=== PATIENT | female | born 1950 | race Caucasian/White ===

== ENCOUNTER 2019-05-05 13:50 | Emergency (ER) | payer MEDICARE ==
--- NOTE | 2019-05-05 14:10 | ED ---
Upper Extremity Pain - HPI Summary HPI Summary: Patient is a 68 y/o F presenting to [facility] with complaints of right shoulder pain. Patient reports that she has been experiencing pain at this shoulder for the past month. Less than an hour ago, she states that she lifted a bag of garbage up and into a dumpster. She felt some tearing and sudden onset of pain. Decreased ROM of the RUE is noted. She rates the pain a "20" out of 10. Patient had cyst removal to right shoulder. PSHx of left (not right) shoulder rotator cuff surgery is noted as well. She also notes "sinus infection" for the past two days. PMHx of asthma is noted. Home medications and allergies are reviewed. - History of Current Complaint Chief Complaint: EDShoulderClavicByron Stated Complaint: RT ARM INJ PER PT Time Seen by Provider: 05/05/19 14:01 Hx Obtained From: Patient Mechanism Of Injury: Other - lifting bag of garbage Onset/Duration: Started Minutes Ago, Started Weeks Ago, Still Present, Worse Since Timing: Constant, Lasting Minutes, Lasting Weeks Severity Initially: Moderate Severity Currently: Severe Pain Location: Shoulder - right Aggravating Factor(s): Movement Alleviating Factor(s): Nothing Associated Signs & Symptoms: Positive: Negative - Allergies/Home Medications Allergies/Adverse Reactions: Allergies Allergy/AdvReac Type Severity Reaction Status Date / Time No Known Allergies Allergy Verified 05/05/19 13:55 PMH/Surg Hx/FS Hx/Imm Hx Endocrine/Hematology History: Denies: Hx Diabetes, Hx Anemia Cardiovascular History: Reports: Hx Hypertension - TAKES MEDICATION Denies: Hx Pacemaker/ICD Respiratory History: Reports: Hx Asthma GI History: Denies: Hx Jaundice History: Denies: Hx Dialysis, Hx Renal Disease Sensory History: Denies: Hx Hearing Aid Psychiatric History: Denies: Hx Panic Disorder - Cancer History Hx Chemotherapy: No Hx Radiation Therapy: No - Surgical History Surgery Procedure, Year, and Place: BILATERAL KNEE REPLACEMENT. RT SHOULDER ARTHRO Infectious Disease History: No Infectious Disease History: Denies: Traveled Outside the [place] in Last 30 Days - Family History Known Family History: Positive: Cardiac Disease, Diabetes - Social History Alcohol Use: None Substance Use Type: Reports: None Smoking Status (MU): Never Smoked Tobacco Review of Systems Negative: Fever - on vitals, temp is 99.5 F ENT: Other - positive - "sinus infection" Musculoskeletal: Other - positive - right shoulder pain Positive: Decreased ROM - RUE All Other Systems Reviewed And Are Negative: Yes Physical Exam - Summary Physical Exam Summary: VITAL SIGNS: Reviewed. GENERAL: Patient is a well-developed and nourished female who is lying comfortable in the stretcher. Patient is not in any acute respiratory distress. HEAD AND FACE: No signs of trauma. No ecchymosis, hematomas or skull depressions. No sinus tenderness. EYES: PERRLA, EOMI x 2, No injected conjunctiva, no nystagmus. EARS: Hearing grossly intact. Ear canals and tympanic membranes are within normal limits. MOUTH: Oropharynx within normal limits. NECK: Supple, trachea is midline, no adenopathy, no JVD, no carotid bruit, no c- spine tenderness, neck with full ROM. CHEST: Symmetric, no tenderness at palpation. LUNGS: Clear to auscultation bilaterally. No wheezing or crackles. CVS: Regular rate and rhythm, S1 and S2 present, no murmurs or gallops appreciated. ABDOMEN: Soft, non-tender. No signs of distention. No rebound, no guarding, and no masses palpated. Bowel sounds are normal. EXTREMITIES: Decreased ROM of RUE secondary to pain, unable to abduct RUE. There is no edema, no deformity, no cyanosis or clubbing. Good pulses. NEURO: Alert and oriented x 3. No acute neurological deficits. Speech is normal and follows commands. SKIN: Dry and warm. Triage Information Reviewed: Yes Vital Signs On Initial Exam: Initial Vitals Temp Pulse Resp BP Pulse Ox 99.5 F 93 16 206/91 98 05/05/19 13:53 05/05/19 13:53 05/05/19 13:53 05/05/19 13:53 05/05/19 13:53 Vital Signs Reviewed: Yes Procedures - Sedation Patient Received Moderate/Deep Sedation with Procedure: No Diagnostics - Vital Signs Vital Signs Temp Pulse Resp BP Pulse Ox 05/05/19 13:53 99.5 F 93 16 206/91 98 - Laboratory Lab Statement: Any lab studies that have been ordered have been reviewed, and results considered in the medical decision making process. - Radiology RIGHT SHOULDER X-RAY Radiology Interpretation Completed By: Radiologist Summary of Radiographic Findings: IMPRESSION: Question fracture of the inferior aspect of the clavicle at the. coracoclavicular ligament. The humerus and glenohumeral joint are unremarkable. THIS REPORT WAS REVIEWED BY DR. ELISE. Re-Evaluation - Re-Evaluation First Eval Re-Evaluation Time: 15:24 Comment: Discussed shoulder x-ray with the patient. Patient was placed in the shoulder immobilizer. Patient was discharged home with follow-up with orthopedics. Course/Dx - Course Assessment/Plan: This patient is a 68-year-old female who presents to the emergency department with a chief complaint of right shoulder pain. She reports that she was lifting a heavy bag of garbage and she experiencing a tearing sensation of the right shoulder and since then the patient is having pain. X-ray of the right shoulder questionable fracture of the inferior aspect of the clavicle and the coracoclavicular ligament. The humerus and the numeric joint are unremarkable. In the ED course the patient was given Toradol and [place] for pain. Patient was placed in the shoulder immobilizer. Patient was discharged home with follow-up with orthopedics. Patient is hemodynamically stable and attempted 3. - Diagnoses Differential Diagnosis/HQI/PQRI: Positive: Arthritis, Bursitis, Fracture (Closed ), Strain, Sprain Provider Diagnoses: Clavicular fracture Discharge ED - Sign-Out/Discharge Documenting (check all that apply): Patient Departure - discharge - Discharge Plan Condition: Stable Disposition: HOME Patient Education Materials: Clavicle Fracture (ED) Referrals: Bro King MD [Medical Doctor] - 3 Days Roya Bahena MD [Primary Care Provider] - 3 Days Additional Instructions: PLEASE RETURN TO ED FOR ANY NEW OR WORSENING SYMPTOMS. PLEASE FOLLOW UP WITH ORTHOPEDICS AND YOUR PRIMARY CARE PHYSICIAN WITHIN THREE DAYS. - Billing Disposition and Condition Condition: STABLE Disposition: Home - Attestation Statements Document Initiated by Scribe: Yes Documenting Scribe: YESSI BERRY Provider For Whom Darcy is Documenting (Include Credential): ROSS ELISE MD Scribe Attestation: YESSI Ibarra, scribed for ROSS ELISE MD on 05/06/19 at 1243. Scribe Documentation Reviewed: Yes Provider Attestation: The documentation as recorded by the YESSI muse accurately reflects the service I personally performed and the decisions made by ROSS carter MD Status of Scribe Document: Viewed
[2019-05-05] MEDS ORDERED: Ketorolac INJ* 30 MG/ML 1 ML VIAL IV PUSH ONE (14:11)
[2019-05-05] MEDS ORDERED: oxyCODONE/Acetamin 5/325 MG* TAB PO ONE (14:11)
[2019-05-05] MEDS ORDERED: Ketorolac *IM* INJ* 60 MG/2 ML VIAL IM ONE (14:44)
--- OUTSIDE RECORDS SUMMARY | 2019-05-05 15:08 | XMS REPORT | Continuity of Care Document ---
:1950 External Reference #:[id number] Author Name Jerilyn Aguiar O.D. Address [address] [place] [id number] Care Team Providers Name Role Phone Roya Bahena M.D. - Internal Care Team Information Deputy [employer] Medicine Problems Active Problems Provider Date Essential hypertension Onset: Hypercholesterolemia Onset: Asthma Onset: Nuclear senile cataract Jerilyn Aguiar O.D. Onset: 03/01/2018 Presbyopia Jerilyn Aguiar O.D. Onset: 03/01/2018 Regular astigmatism Jerilyn Aguiar O.D. Onset: 03/01/2018 Social History Type Date Description Comments Sex Unknown ETOH Use Denies alcohol use Tobacco Use Start: Unknown Patient has never smoked Recreational Drug Use Denies Drug Use Smoking Status Reviewed: 04/26/19 Patient has never smoked Allergies, Adverse Reactions, Alerts Description No Known Drug Allergies Medications Active Medications SIG Qnty Indications Ordering Provider Date Lisinopril Dewayne Palomo, 10mg Tablets Hydrocodone-Acetaminoph Roya Bahena en M.D. 10-325mg Tablets Pantoprazole Sodium take 1 tablet by Unknown 40mg mouth once daily Tablets Roya Marie 100mg Capsules M.D. Amlodipine Besylate Unknown 2.5mg Tablets Ezetimibe Unknown 10mg Tablets Atorvastatin Calcium Unknown 10mg Tablets Montelukast Sodium Kailey Smith 10mg N.P. Tablets Asmanex Twisthaler 60 Roya Bahena Metered Doses M.D. 220mcg/Inh Aerosol Proair HFA Roya Bahena 108(90Base) M.D. mcg/Act Aerosol Potassium Chloride Dewayne Gilbert, ER 20Meq Tablets ER Metoprolol Tartrate Unknown 50mg Tablets Aspirin [address] Kings Description No Information Available Vital Signs Description No Information Available Results Description No Information Available Procedures Description No Information Available Medical Devices Description No Information Available Encounters Description No Information Available Assessments Date Code Description Provider 04/26/2019 H25.13 Age-related nuclear cataract, bilateral Jerilyn Aguiar O.D. 04/26/2019 H52.4 Presbyopia Jerilyn Aguiar O.D. 04/26/2019 H52.223 Regular astigmatism, bilateral Jerilyn Aguiar O.D. Plan of Treatment 04/26/2019 - Jerilyn Aguiar O.D.H25.13 Age-related nuclear cataract, bilateralComments:You have been diagnosed with cataracts. If you are happy with your vision as it is now, then we willsee you at your next scheduled appointment. If you feel like your vision is getting worse before your scheduled appointment, please call [facility] at [phone].Follow up:1 Year Follow Up You can expect to have your eyes dilated at your next visit. If Dr. Aguiar orders any additional testing, it may require extra time. We recommend that you bring sunglasses, as dilation drops often make you light sensitive until they wear off. We always recommend you bring someone to drive you home if you are uncomfortable driving with your eyes dilated. If you have any questions before your next visit, feel free to call our office at .H52.4 PresbyopiaComments:You have presbyopia. This is when the lens in your eye loses the ability to change focus, and happens as we age. A pair of reading glasses will help you see up close.H52.223 Regular astigmatism, bilateralComments:You have an astigmatism. Astigmatism is a common vision condition that happens when a person's cornea is not symmetrical. Dr. Aguiar has given you a prescription to correct for this. Functional Status Description No Information Available Mental Status Description No Information Available Referrals Description No Information Available
--- OUTSIDE RECORDS SUMMARY | 2019-05-05 15:08 | XMS REPORT | Continuity of Care Document ---
:1950 External Reference #:[id number] Author Name Dewayne Palomo M.D. (transmitted by agent of provider Alejandra Abrams ) Address [address] [place] [id number] Care Team Providers Name Role Phone Roya Bahena MD - Internal Care Team Information Hospital Clerk Medicine Problems Active Problems Provider Date Benign essential hypertension Jo-Ann Tracey, N.PZahraa Onset: 10/21/2011 Morbid obesity Dewayne Palomo M.D. Onset: 12/20/2012 Electrocardiogram abnormal Dewayne Palomo M.D. Onset: 12/20/2012 Mitral valve disorder Dewayne Palomo M.D. Onset: 12/20/2012 Spinal stenosis of lumbar region Pop Lucero M.D. Onset: 09/30/2013 Essential hypertension Dewayne Palomo M.D. Onset: 04/01/2015 Sleep disorder Dewayne Palomo M.D. Onset: 04/02/2014 Social History Type Date Description Comments Sex Unknown Tobacco Use Start: Unknown Never Smoked Cigarettes Smoking Status Reviewed: 03/15/19 Never Smoked Cigarettes ETOH Use Denies alcohol use Tobacco Use Start: Unknown Patient has never smoked Recreational Drug Use Denies Drug Use Exercise Type/Frequency Exercises rarely Allergies, Adverse Reactions, Alerts Description No Known Drug Allergies Medications Active Medications SIG Qnty Indications Ordering Provider Date Pantoprazole Sodium 1 by mouth every 60tabs R07.9 Dewayne Matute 02/10/2016 day Lela Palomo 40mg Tablets DR De La Cruz 1 by mouth every 90tabs E78.4 Dewayne Matute 12/15/2015 10mg Tablets day Lela Palomo Amlodipine Besylate 2 by mouth every 180tabs Dewayne Matute 11/11/2015 day Lela Palomo 2.5mg Tablets Lipitor 1/2 by mouth 45tabs Dewayne F. 05/11/2015 10mg Tablets every night at Lela Palomo bedtime Potassium Chloride 1/2 tab by mouth 90tabs Dewayne F. 04/21/2014 Alicja ER twice daily Lela Palomo 20Meq Tablets ER Lisinopril 1 by mouth every 90tabs Dewayne Matute 04/02/2014 10mg Tablets day Lela Palomo Asmanex 120 Metered 1 puff qd Other Ordering 12/20/2012 Doses Provider 220mcg/Inh Aerosol Aspirin 1 po qd 90tabs Dewayne Matute 12/20/2012 81mg Tablets Lela Palomo Lyrica 1 PO twice daily 90caps Aleksandr Patel, 10/09/2006 100mg Capsules Lela Proair HFA 2 puffs po q4h 1units Unknown 108(90Base) prn mcg/ac Aerosol Singulair 1 by mouth every 90tabs Unknown 10mg Tablets day Metoprolol Tartrate 1 by mouth as Unknown needed 50mg Tablets Hydrocodone-Acetamino 1 tablet twice Unknown phen daily by mouth 10-325mg Tablets Keflex dental work prn Unknown 500mg Capsules Medications Administered in Office Medication SIG Qnty Indications Ordering Provider Date Depomedrol 40MG Sho Bryan M.D. 03/21/2018 Injection Immunizations Description No Information Available Vital Signs Date Vital Result Comment 03/15/2019 1:01pm Height 67 inches 5'7" Weight 245.25 lb with shoes Heart Rate 68 /min BP Systolic Sitting 142 mmHg ule lg cuff BP Diastolic Sitting 82 mmHg ule lg cuff BP Systolic Standing 148 mmHg ule lg cuff BP Diastolic Standing 82 mmHg ule lg cuff BP Systolic Lying Down 138 mmHg la repeat sitting. BP Diastolic Lying Down 81 mmHg la repeat sitting. BMI (Body Mass Index) 38.4 kg/m2 Ejection Fraction 60-65% Echo 7/24/13 04/18/2018 8:45am Height 67 inches 5'7" Weight 234.12 lb W/ Shoes Heart Rate 70 /min BP Systolic Sitting 115 mmHg Lur Large Cuff BP Diastolic Sitting 86 mmHg Lur Large Cuff BP Systolic Standing 125 mmHg la repeat sitting BP Diastolic Standing 76 mmHg la repeat sitting BMI (Body Mass Index) 36.7 kg/m2 Ejection Fraction 55-60% Stress ECHO 10/26/16 Results Description No Information Available Procedures Date Code Description Status 03/15/2019 27639 EKG Tracing & Interpretation Completed 12/25/2017 70908823 Colonoscopy Completed Medical Devices Description No Information Available Encounters Description No Information Available Assessments Date Code Description Provider 03/15/2019 I10 Essential (primary) hypertension Dewayne Palomo M.D. 03/15/2019 E78.00 Pure hypercholesterolemia, unspecified Dewayne Palomo M.D. 03/15/2019 I47.1 Supraventricular tachycardia Dewayne Palomo M.D. 03/15/2019 E66.8 Obesity Dewayne Palomo M.D. 03/15/2019 G47.30 Sleep apnea Dewayne Palomo M.D. 03/15/2019 R06.00 Dyspnea Dewayne Palomo M.D. Plan of Treatment Future Appointment(s):04/17/2019 9:00 am - [place] ECHO Schedule at [facility]04/17/2019 9:30 am - Dewayne Palomo M.D. at [facility]09/2018 - Dewayne Palomo M.D.I10 Essential (primary) hypertensionFollow up: ov 10/20194070I93.00 Pure hypercholesterolemia, unspecifiedNew Labs:Lipid Panel - JFM , Ordered: 03/15/19CBC Auto Diff, Ordered: 03/15/19Magnesium, Ordered: I47.1 Supraventricular tachycardiaRecommendations:[place] Supervisor Dr. Mario Alberto Dumont66.8 LipfrqfM85.30 Sleep hknjaW16.00 DyspneaNew Labs:B-Type Natriuretic Peptide BNP, Ordered: 03/15/19New Orders:Echocardiogram, Ordered: Stress Test, Exercise Echocardiogram, Scheduled: 04/17/19 Functional Status Description No Information Available Mental Status Description No Information Available Referrals Description No Information Available
[2019-05-05 16:10] VITALS: BP 132/70
== END 2019-05-05 16:08 | disposition home or self-care (01) ==
LOC: ED 13:50
DX: S42.001A Fracture of unspecified part of right clavicle, initial encounter for closed fracture (principal); X50.0XXA Overexertion from strenuous movement or load, initial encounter; Y92.9 Unspecified place or not applicable; I10 Essential (primary) hypertension; J45.909 Unspecified asthma, uncomplicated; Z96.653 Presence of artificial knee joint, bilateral; Z79.899 Other long term (current) drug therapy
CPT/HCPCS: 96372; 99282; A9270-GY; J1885